=== PATIENT | female | born 1950 | race Caucasian/White ===

== ENCOUNTER 2016-10-23 00:29 | Emergency (ER) | payer OTHER ==
[~2016-10-23] VITALS: Ht 154.9 cm; Wt 73.3 kg
[~2016-10-23 00:29] MED LIST: ALKA-SELTZER O1 EACH PO; ASPIR-LOW81 MG PO; CADUET 5/201 TABLET PO; FLONASE16 G1 BOTH NARES; GLIMEPIRIDE1 MG PO; METFORMIN HCL1000 MG PO; NITROSTAT0.4 MG SL; PEPCID40 MG PO; PIOGLITAZONE HC30 MG PO; PRAVASTATIN SOD80 MG PO; PRILOSEC40 MG PO; RANITIDINE HCL150 M1 PO; SERTRALINE HCL50 MG PO; TYLENOL PM1 CAPLET PO; ZOFRAN4 MG PO
[2016-10-23] MEDS ORDERED: TRAMADOL HCL50 MG PO (01:48)
[2016-10-23] MEDS ORDERED: COLCHICINE0.6 M1 PO (01:48)
[2016-10-23 01:59] VITALS: BP 127/96
== END 2016-10-23 02:00 | disposition home or self-care (01) ==
LOC: EME 00:29
DX: M10.9 Gout, unspecified (principal); E11.9 Type 2 diabetes mellitus without complications; Z79.84 Long term (current) use of oral hypoglycemic drugs; I10 Essential (primary) hypertension; E78.5 Hyperlipidemia, unspecified; F32.9 Major depressive disorder, single episode, unspecified; F41.0 Panic disorder [episodic paroxysmal anxiety]
CPT/HCPCS: 99281; 99284